=== PATIENT | male | born 1940 | race Caucasian/White ===

== ENCOUNTER → 2017-01-12 | Outpatient (CLI) | payer OTHER ==
[2016-04-01 15:00] VITALS: BP 135/76
[~2017-01-12] MED LIST: ACET500T68 PO; AMLO5TAB2 PO; CHOL100013 PO; CIPR500T94 PO; CRESTOR20 MG PO; CYAN10005 PO; CYCL10TA2 PO; ENOX100D3 SQ; ERGO500027 PO; FOLI1TAB16 PO; FURO40TA4 PO; GABA-585 PO; GABA-586 PO; GEMF600T3 PO; LAMO200T3 PO; LAMO300T2 PO; LIDO700A4 TP; LISI40TA PO; METO50TA2 PO; NITR0.4T SL; OXYC5CAP PO; PARO30TA3 PO; PRIM50TA PO; RIVA20TA2 PO; SERT100T8 PO; TRAZ150T49 PO; TRAZ50TA15 PO; TROL90CR TP; WARF5TAB7 PO; WARF7.5T6 PO
--- NOTE | 2017-01-13 03:07 | PAIN ---
DATE OF SERVICE: 01/12/2017 DIAGNOSES: Lumbar radiculopathy with lumbar degenerative disk disease, lumbar spinal stenosis and spondylosis. HISTORY OF PRESENT ILLNESS: The patient is a 76-year-old male who returns for followup, last seen in 2015 for initial evaluation. The patient changed his care to the [facility] in [place] and has been having some pain management there; however, they are undergoing some remodeling by his report, he is unable to return and he has been referred back here. He reports significant pain across the low back into the bilateral posterior extremities, posterolateral aspect as well as the lateral anterior thighs, posterior thighs, posterior calves into the feet on occasion, but not every day. The patient reports the main pain is across the low back bilaterally, somewhat worse on the right than the left, rated at 8 on a scale of 10 at its worse, it is a sharp, constant, unbearable, at times worse with walking and standing, worse with extension and flexion, it has been waking him from sleep at night occasionally, but most nights he sleeps well. The patient reports feels better with sitting down, better with lying down as well. The patient had some facet injections at the [facility] last year, which did help significantly about 90% by his report. He did not return. The patient reports otherwise no new motor or sensory deficits, no new bowel or bladder incontinence or other complaints. Just has still significant pain. PAST MEDICAL HISTORY: Significant for hearing loss, type 2 diabetes, metastatic melanoma, COPD, cigarette smoking, hypertension, irregular heart rhythm, myocardial infarction, arthritis, depression, tremors and post-traumatic stress disorder. PREVIOUS SURGERY: Include AAA repair in 2007, melanoma excision and cardiac stent in 2003. CURRENT MEDICATIONS: Include Xarelto, Crestor, trazodone, Neurontin, primidone, paroxetine, metoprolol, gemfibrozil, Lasix, folic acid, vitamins D and B12 and amlodipine. ALLERGIES: THE PATIENT IS ALLERGIC TO PENICILLIN. FAMILY HISTORY: Significant for multiple types of various cancers. SOCIAL HISTORY: The patient does not drink, smokes 5-6 cigarettes a day and has for 40 years, lives with his spouse, retired and lives locally in [place], [place]. REVIEW OF SYSTEMS: The patient's review of systems is positive for those items mentioned in history of present illness. It is completed ____, well documented on the patient's chart. PHYSICAL EXAMINATION: VITAL SIGNS: Today, blood pressure is 130/65, pulse 58, respirations 18, temperature 98.1 degrees Fahrenheit. Height is 5 feet 8 inches, weight 227 pounds. GENERAL: The patient is awake, alert, oriented, appropriate, very pleasant demeanor, he is accompanied by his spouse. HEENT: Shows normocephalic, atraumatic. Extraocular movements are intact and symmetrical. Oral cavity shows mucous membranes moist and pink. The patient has some scarring in the anterior forehead from previous melanoma excision. NECK: Shows anterior throat supple without palpable lymphadenopathy noted. Neck shows full rotational motion of the cervical spine. CHEST: Shows breath sounds clear to auscultation bilaterally. Normal on inspection. HEART: Shows S1 and S2 clear. No murmurs auscultated. ABDOMEN: Obese, soft, nontender, nondistended. No palpable organomegaly is noted. No rebound or guarding with palpation. BACK: Shows grossly midline spine. Some moderate exaggeration of thoracic kyphosis, some mild lumbar flattening of lumbar lordotic curvature. No previous bruises, lesions, rashes or scars demonstrated. Lumbar paraspinous muscle shows some ____ tender with palpation, but is symmetrical with inspection. No radiation of pain. Also, some mild tenderness over the bilateral superior sacroiliac regions more on the right than the left. The patient shows good rotation and motion of the lumbar spine, but has some significant tenderness with extension, but not with forward flexion. The patient's lower extremities showed deep tendon reflexes 1+ in the patellar and tendo calcaneus tendons. Motor exam is 4 on a scale of 5, but equal with dorsiflexion, extension, quadriceps and hamstring flexion and is symmetrical. Peripheral pulses are 1+ posterior tibial and dorsalis pedis pulses. No peripheral edema is noted. No clubbing, no cyanosis. PLAN: Options were discussed with the patient. We will preauthorize the patient for bilateral lumbar facet joint injections at L4-L5 and L5-S1 levels as he has done very well with these in the past. We also discussed possible epidural steroid injection in the future, but with his recent success with the facet injections, we will start with these, if significantly improved, may move on to radiofrequency ablation in the future, we discussed this as well and he is interested in anything that will decrease his pain, also clearance with his primary care physician to hold his Xarelto for 3 days prior to procedure. Clearance is given ____ and we will proceed with the aforementioned lumbar facet injections. JUSTUS EDDY MD DR: EMMA/jan JOB#: [id number] / [id number]
== END | disposition home or self-care (01) ==
LOC: PNCL 08:27
PROVIDERS: ATTEND Anesthesiology
DX: M51.16 Intervertebral disc disorders with radiculopathy, lumbar region (principal); M48.06 Spinal stenosis, lumbar region; M43.06 Spondylolysis, lumbar region
CPT/HCPCS: 99212

== ENCOUNTER → 2017-01-26 | Outpatient (CLI) | payer OTHER ==
[2016-04-01 15:00] VITALS: BP 135/76
[~2017-01-26] MED LIST changes: +BUPIVACAINE MPF 0.25% 10 ML VIAL. ONE; +IOHEXOL 180 MG/ML 10 ML VIAL. ONE; +methylPREDNISolone ACETATE 40 MG/ML VIAL. ONE; +methylPREDNISolone ACETATE 80 MG/ML VIAL. ONE
--- NOTE | 2017-01-27 03:02 | PAIN ---
DATE OF SERVICE: 01/26/2017 PROGRESS NOTE FOR PAIN CLINIC DIAGNOSES: Lumbar radiculopathy with lumbar degenerative disk disease, lumbar spinal stenosis and spondylosis. HISTORY OF PRESENT ILLNESS: The patient is a 76-year-old male who returns for followup after clearance to hold the Xarelto for 3 days. He has been offered this now for about 3-1/2 days by his report and his 's report. The patient reports there is still significant pain across the low back, slightly more worse on the right than the left, but present bilaterally and it was worse with extension, bending, flexing, rated as an 8 on a scale of 10 at its worst, averages an 8 and is currently a 6 on a scale of 10. The patient reports it is sharp, shooting, stabbing, on and off in intensity, but always present. The patient reports it awakens him from sleep occasionally. He feels better usually with lying down or sitting, but riding in a car for a long period of time can exacerbate the pain as well. The patient reports no new motor or sensory deficits, no new bowel or bladder incontinence or other complaints. PHYSICAL EXAMINATION: VITAL SIGNS: Today, the patient's blood pressure is ____, pulse is ____, respirations are 18, temperature is 97.9 degrees Fahrenheit, weight is 228 pounds. GENERAL: The patient is awake, alert, oriented, appropriate, very pleasant demeanor. HEENT: Head shows normocephalic, atraumatic. Extraocular movements are intact and symmetrical. Oral cavity shows mucous membranes moist and pink. Dentition is intact. NECK: Shows anterior throat supple without palpable lymphadenopathy noted. Swallow reflex is symmetrical. CHEST: Shows normal on inspection. Breath sounds clear to auscultation bilaterally. HEART: Shows S1 and S2 clear. ABDOMEN: Soft, nontender, nondistended. No palpable organomegaly is noted. No rebound or guarding demonstrated. BACK: Shows spine grossly in the midline. Slight exaggeration of thoracic kyphosis and mild flattening of lumbar lordotic curvature. Lumbar paraspinous musculature shows some diffuse tenderness with palpation bilaterally, but only diffusely, more on the right than the left in the low lumbar distribution with no tenderness over the sacrum or sacroiliac regions. The patient shows good rotational motion with tenderness bilaterally with greater than 10 degrees, right and left lateral rotation, but again more severe on the right side by report with rotation and with extension. EXTREMITIES: Lower extremities showed deep tendon reflexes 1+ in the patellar and tendo calcaneus tendons. Motor exam is strong with approximately 4 on a scale of 5 with dorsiflexion and extension, but equal and symmetrical. Options were discussed with the patient and the patient's old chart was reviewed as his current medication regimen was updated as well as his review of systems updated today. We will proceed with bilateral L4-L5 and L5-S1 facet joint injections with fluoroscopic guidance. Risks were again discussed including, but not limited to bleeding, infection, possibility of epidural hematoma and subsequent neurologic compromise, dural punctures, headaches, spinal cord and/or nerve damage, side effects of steroid medications, poor results regarding pain control. The patient understands and wishes to proceed. The patient will return to clinic in approximately 3 weeks for followup, was counseled on return appointment, activity level and side effects to be aware of. The patient will start on Xarelto again later today and we will follow up as scheduled. DIAGNOSES: Lumbar spondylosis and lumbosacral spondylosis. PROCEDURES: Bilateral L4-L5 and L5-S1 facet joint injections with C-arm fluoroscopic guidance under sterile prep and drape using local anesthetic. MEDICATIONS INJECTED: A total of 120 mg of Depo-Medrol plus a total of 4 mL of 0.25% bupivacaine and a total of 2 mL of Isovue contrast. CONDITION AT DISCHARGE: Stable. The patient tolerated procedure well, had no complications. JUSTUS EDDY MD DR: EMMA/jan JOB#: [id number] / [id number]
== END | disposition home or self-care (01) ==
LOC: PNCL 09:41
PROVIDERS: ATTEND Anesthesiology
DX: M51.16 Intervertebral disc disorders with radiculopathy, lumbar region (principal); M48.06 Spinal stenosis, lumbar region; M47.896 Other spondylosis, lumbar region
CPT/HCPCS: 99212; J1030; J1040; J3490

== ENCOUNTER → 2017-02-15 | Outpatient (CLI) | payer OTHER ==
[2016-04-01 15:00] VITALS: BP 135/76
[~2017-02-15] MED LIST changes: -BUPIVACAINE MPF 0.25% 10 ML VIAL. ONE; -IOHEXOL 180 MG/ML 10 ML VIAL. ONE; -methylPREDNISolone ACETATE 40 MG/ML VIAL. ONE; -methylPREDNISolone ACETATE 80 MG/ML VIAL. ONE
== END | disposition home or self-care (01) ==
LOC: PNCL 10:33
PROVIDERS: ATTEND Anesthesiology
DX: M50.30 Other cervical disc degeneration, unspecified cervical region (principal); M47.897 Other spondylosis, lumbosacral region; M47.892 Other spondylosis, cervical region; R53.1 Weakness
CPT/HCPCS: G0463

== ENCOUNTER → 2017-05-18 | Outpatient (CLI) | payer OTHER ==
[2016-04-01 15:00] VITALS: BP 135/76
--- NOTE | 2017-05-18 15:07 | PAIN ---
DATE OF SERVICE: 05/18/2017 DIAGNOSES: Lumbar radiculopathy with lumbar spinal stenosis, degenerative disk disease and lumbar and lumbosacral spondylosis. HISTORY OF PRESENT ILLNESS: The patient is a 76-year-old male who returns for followup status post bilateral lumbar facet injections on 01/26/2017. The patient did very well with about 90% plus improvement. The patient had been doing very well. We saw him back in 02/2013. He was doing so well that we hold off on any further treatment at that time. The patient reports over the past few months, the pain is beginning to return, but only very gradually and more noticeable in the last 2 weeks or so. The patient reports that pain across the low back, essentially back at baseline, across the low back bilaterally with tenderness with walking, standing, riding lawnmower and prolonged sitting, becoming more of a stabbing pain that can become unbearable. The patient reports a 9 on a scale of 10 at its worse. It averaged about 8 over the past few weeks and as low as about 4, and it is 5 today. The patient reports no new motor or sensory deficits, but still significant pain in the low back itself bilaterally, right essentially equal to left. The patient reports no further radiation to the lower extremities at this time. PHYSICAL EXAMINATION: VITAL SIGNS: Today, the patient's blood pressure is 137/82, pulse 62, respirations 18, temperature 97.7 degrees Fahrenheit, height is 5 feet 8 inches, weight is 225 pounds. GENERAL: The patient is awake, alert, oriented, appropriate, very pleasant demeanor. The patient is accompanied by his spouse. HEENT: Shows normocephalic, atraumatic. Extraocular movements are intact and symmetrical. Oral cavity: Mucous membranes moist and pink. Dentition is intact. NECK: Shows anterior throat supple without palpable lymphadenopathy noted. Swallow reflex is symmetrical. CHEST: Shows normal on inspection. Breath sounds are clear to auscultation bilaterally. HEART: Shows S1 and S2 clear. No murmurs auscultated. ABDOMEN: Soft, nontender, nondistended. No palpable organomegaly is noted. No rebound or guarding demonstrated. BACK: Shows spine grossly in midline with a slight exaggeration of thoracic kyphosis and mild flattening of lumbar lordotic curvature. Lumbar paraspinous musculature shows symmetrical on inspection with palpation. It is diffusely tender bilaterally, but only diffusely without radiation and is essentially symmetrical, no asymmetries demonstrated, no trigger points or radiation. No tenderness over the sacrum or sacroiliac regions. EXTREMITIES: Lower extremities showed deep tendon reflexes at 1+ in the patellar and tendo calcaneus tendons. Motor exam is approximately 4 on a scale of 5, but equal and symmetrical with dorsiflexion, extension, quadriceps and hamstring flexion. Peripheral pulses are 1+ posterior tibial. No peripheral edema is noted bilaterally. Options were discussed with the patient and the patient's spouse. We will have the patient hold his Xarelto as he was cleared to do this with his primary care physician for the next 3 days. We will have him return after that and plan on repeat lumbar facet joint injections, bilateral L4-L5 and L5-S1 as he did very well with these in the past. The patient understands and agrees. He was also given Medrol Dosepak prescription today to take over the next 3 days in hopes of decreasing the pain to some extent. The patient was cautioned as to side effects with the Medrol Dosepak medication as well and will follow up in 3 days as scheduled with holding Xarelto in the meantime. JUSTUS EDDY MD DR: EMMA/jan JOB#: [id number] / [id number]
== END | disposition home or self-care (01) ==
LOC: PNCL 10:12
PROVIDERS: ATTEND Anesthesiology
DX: M51.16 Intervertebral disc disorders with radiculopathy, lumbar region (principal); M48.061 Spinal stenosis, lumbar region without neurogenic claudication; M47.27 Other spondylosis with radiculopathy, lumbosacral region
CPT/HCPCS: 99212

== ENCOUNTER → 2017-05-21 | Outpatient (CLI) | payer OTHER ==
[2016-04-01 15:00] VITALS: BP 135/76
[~2017-05-21] MED LIST changes: +BUPIVACAINE MPF 0.25% 10 ML VIAL. ONE; +IOHEXOL 180 MG/ML 10 ML VIAL. ONE; +methylPREDNISolone ACETATE 40 MG/ML VIAL. ONE; +methylPREDNISolone ACETATE 80 MG/ML VIAL. ONE
--- NOTE | 2017-05-21 14:02 | PAIN ---
DATE OF SERVICE: 05/21/2017 DIAGNOSES: Lumbar radiculopathy with lumbar spinal stenosis, degenerative disk disease and lumbosacral spondylosis. HISTORY OF PRESENT ILLNESS: The patient is a 76-year-old male who returns for followup status post evaluation on 05/18. The patient was still on his Xarelto at that time, he has not held that with permission from his primary physician for the past 3 days. He returns today with still significant pain in the low back bilaterally, returning significantly after the injections he had in January, which did very well with about 90% improvement after facet joint injections. The patient reports the pain is now stabbing, unbearable, dull, aching and shooting in the low back. The patient reports it is 8 on a scale of 10 at its worst, as average about 8, is a 5 at least and 5 this morning. The patient reports no new motor or sensory deficits, no new bowel or bladder incontinence. The patient reports it is still causing some pain with walking, standing. We did try Medrol Dosepak over the weekend. He said it was somewhat better, but he felt anxious while taking it and discontinued it yesterday. PHYSICAL EXAMINATION: VITAL SIGNS: The patient's blood pressure 135/92, pulse 63, respirations 18, temperature 97.8 degrees Fahrenheit, height is 5 feet 8 inches, weight is 225 pounds. GENERAL: The patient is awake, alert, oriented, appropriate, very pleasant demeanor. HEENT: Head shows normocephalic, atraumatic. Extraocular movements are intact, symmetrical. Oral cavity, mucous membranes are moist and pink. Dentition is intact. NECK: Shows anterior throat supple without palpable lymphadenopathy noted. Swallow reflex is symmetrical. CHEST: Shows normal on inspection. Breath sounds are clear to auscultation bilaterally. HEART: Shows S1 and S2 clear. ABDOMEN: Soft, obese, nontender, nondistended. No palpable organomegaly. BACK: Shows spine grossly midline. Lumbar paraspinous muscle shows some moderate tenderness with palpation, but only diffusely bilaterally without radiation. The patient has good rotational motion with some tenderness with extension, but not with forward flexion. EXTREMITIES: Lower extremities show deep tendon reflexes 1+ in the patellar and tendo calcaneus tendons. Motor exam is approximately 4 on a scale of 5, but equal and symmetrical with motor function bilaterally. Peripheral pulses are 1+ posterior tibia. No peripheral edema is noted in lower extremities. Options were discussed with the patient and the patient's old chart was reviewed as is current medication regimen updated. Current review of systems updated today as well. We will proceed with bilateral L4-L5 and L5-S1 facet joint injections with fluoroscopic guidance. Risks were again discussed including, but not limited to bleeding, infection, possibility of intravascular injection sequelae, spread of local anesthetic and numbness, side effects of steroid medication and poor results regarding pain control. The patient understands and wishes to proceed. The patient will return to clinic in approximately 2 weeks for followup. She was counseled as to return appointment, activity level and side effects to be aware of. DIAGNOSES: Lumbar spondylosis and lumbosacral spondylosis. PROCEDURES: Bilateral L4-L5 and L5-S1 facet joint injections with C-arm fluoroscopic guidance under sterile prep and drape using local anesthetic. MEDICATIONS INJECTED: Total of 120 mg Depo-Medrol, plus total of 4 mL of 0.25% bupivacaine and a total of 2 mL of Isovue for contrast. CONDITION AT DISCHARGE: Stable. The patient tolerated procedure well, had no complications. JUSTUS EDDY MD DR: EMMA/jan JOB#: [id number] / [id number]
== END | disposition home or self-care (01) ==
LOC: PNCL 11:09
PROVIDERS: ATTEND Anesthesiology
DX: M51.16 Intervertebral disc disorders with radiculopathy, lumbar region (principal); M47.26 Other spondylosis with radiculopathy, lumbar region; M48.061 Spinal stenosis, lumbar region without neurogenic claudication; I10 Essential (primary) hypertension; J44.9 Chronic obstructive pulmonary disease, unspecified; Z87.01 Personal history of pneumonia (recurrent); Z86.73 Personal history of transient ischemic attack (TIA), and cerebral infarction without residual deficits; Z88.0 Allergy status to penicillin; Z88.8 Allergy status to other drugs, medicaments and biological substances
CPT/HCPCS: 64493; 64494; J1030; J1040; J3490

== ENCOUNTER → 2017-09-21 | Outpatient (CLI) | payer OTHER ==
[~2017-09-21] MED LIST changes: -ACET500T68 PO; -AMLO5TAB2 PO; +BUPIVACAINE MPF 0.25% 10 ML VIAL.; -BUPIVACAINE MPF 0.25% 10 ML VIAL. ONE; -CHOL100013 PO; -CIPR500T94 PO; -CRESTOR20 MG PO; -CYAN10005 PO; -CYCL10TA2 PO; -ENOX100D3 SQ; -ERGO500027 PO; -FOLI1TAB16 PO; -FURO40TA4 PO; -GABA-585 PO; -GABA-586 PO; -GEMF600T3 PO; +IOHEXOL 180 MG/ML 10 ML VIAL.; -IOHEXOL 180 MG/ML 10 ML VIAL. ONE; -LAMO200T3 PO; -LAMO300T2 PO; -LIDO700A4 TP; -LISI40TA PO; -METO50TA2 PO; -NITR0.4T SL; -OXYC5CAP PO; -PARO30TA3 PO; -PRIM50TA PO; -RIVA20TA2 PO; -SERT100T8 PO; -TRAZ150T49 PO; -TRAZ50TA15 PO; -TROL90CR TP; -WARF5TAB7 PO; -WARF7.5T6 PO; +methylPREDNISolone ACETATE 40 MG/ML VIAL.; -methylPREDNISolone ACETATE 40 MG/ML VIAL. ONE; +methylPREDNISolone ACETATE 80 MG/ML VIAL.; -methylPREDNISolone ACETATE 80 MG/ML VIAL. ONE
== END | disposition home or self-care (01) ==
LOC: PNCL 09:10
DX: M47.816 Spondylosis without myelopathy or radiculopathy, lumbar region (principal); M51.36 Other intervertebral disc degeneration, lumbar region; M48.061 Spinal stenosis, lumbar region without neurogenic claudication; E11.9 Type 2 diabetes mellitus without complications; I25.2 Old myocardial infarction; I10 Essential (primary) hypertension; J44.9 Chronic obstructive pulmonary disease, unspecified; Z87.01 Personal history of pneumonia (recurrent); Z72.0 Tobacco use; Z88.0 Allergy status to penicillin; Z86.73 Personal history of transient ischemic attack (TIA), and cerebral infarction without residual deficits; Z88.8 Allergy status to other drugs, medicaments and biological substances; Z88.7 Allergy status to serum and vaccine; Z85.820 Personal history of malignant melanoma of skin; Z98.890 Other specified postprocedural states
CPT/HCPCS: 64493; 64494; 64636; J1030; J1040; J3490; Q9965

== ENCOUNTER 2017-11-19 09:35 | Outpatient (CLI) | payer OTHER ==
[2017-11-21] MEDS ORDERED: IOHEXOL 180 MG/ML 10 ML VIAL. (08:47)
[2017-11-21] MEDS ORDERED: methylPREDNISolone ACETATE 40 MG/ML VIAL. (08:47)
[2017-11-21] MEDS ORDERED: methylPREDNISolone ACETATE 80 MG/ML VIAL. (08:47)
[2017-11-21] MEDS ORDERED: BUPIVACAINE MPF 0.25% 10 ML VIAL. (08:49)
== END 2017-11-21 ==
LOC: PNCL 09:35
DX: M51.16 Intervertebral disc disorders with radiculopathy, lumbar region (principal); M47.817 Spondylosis without myelopathy or radiculopathy, lumbosacral region; M48.061 Spinal stenosis, lumbar region without neurogenic claudication; M54.5 Low back pain
CPT/HCPCS: 64493; 64494; J1030; J1040; J3490; Q9965

== ENCOUNTER → 2018-06-04 | Outpatient (CLI) | payer OTHER ==
[2016-04-01 15:00] VITALS: BP 135/76
[~2018-06-04] MED LIST changes: +ACET500T68 PO; +AMLO5TAB7 PO; -BUPIVACAINE MPF 0.25% 10 ML VIAL.; +BUPIVACAINE MPF 0.25% 10 ML VIAL. ONE; +CHOL100013 PO; +CIPR500T94 PO; +CRESTOR20 MG PO; +CYAN10005 PO; +CYCL10TA2 PO; +ENOX100D3 SQ; +ERGO500027 PO; +FOLI1TAB16 PO; +FURO40TA4 PO; +GABA-585 PO; +GABA-586 PO; +GEMF600T4 PO; -IOHEXOL 180 MG/ML 10 ML VIAL.; +IOHEXOL 180 MG/ML 10 ML VIAL. ONE; +LAMO200T3 PO; +LAMO300T2 PO; +LIDO700A4 TP; +LIDOCAINE 1% PF 2 ML VIAL. ONE; +LISI-130 PO; +METO50TA6 PO; +NITR0.4T SL; +OXYC5CAP PO; +PARO30TA3 PO; +PRIM50TA PO; +RIVA20TA2 PO; +SERT100T8 PO; +TRAZ-85 PO; +TRAZ150T49 PO; +TROL90CR TP; +WARF-31 PO; +WARF7.5T45 PO; -methylPREDNISolone ACETATE 40 MG/ML VIAL.; +methylPREDNISolone ACETATE 40 MG/ML VIAL. ONE; -methylPREDNISolone ACETATE 80 MG/ML VIAL.; +methylPREDNISolone ACETATE 80 MG/ML VIAL. ONE
--- NOTE | 2018-06-04 22:56 | PAIN ---
DATE OF SERVICE: 06/04/2018 PROGRESS NOTE FOR PAIN CLINIC DIAGNOSES: Lumbar radiculopathy with lumbar spinal stenosis, lumbar degenerative disk disease and lumbar spondylosis. HISTORY OF PRESENT ILLNESS: The patient is a 77-year-old male who returns for followup status post previous lumbar facet joint injections, last seen 11/21/2017. The patient did very well after the injections, with approximately 75% improvement, which lasted until about 2 months ago. The patient reports he did very well. The pain has been returning now in the low back itself bilaterally, without any specific radiation to the lower extremities, but significantly tender across the low back. The patient reports it is worse with walking, worse in the morning; legs are shaky as well when the pain is at its worst in his back. The patient reports it is stabbing, constant, aching and tight. He rates it a 7 on a scale of 10 at its worst, 7 on average, 6 at its least and it is a 7 today. The patient reports no new motor or sensory deficits. No new bowel or bladder incontinence or other complaints. He has recently increased his distance walking, increased his household activities, traveling with his spouse, but now the pain has become worse over the past 2 months and these have been limited. The patient reports no new motor or sensory deficits. It does not awaken him from sleep at night, much better with sitting or lying down and much worse with standing and attempting to walk. PHYSICAL EXAMINATION: VITAL SIGNS: The patient's blood pressure is 151/86, pulse 56, respirations 18 and temperature is 98.0 degrees Fahrenheit. Height is 5 feet 8 inches, weight is 223 pounds. GENERAL: The patient is awake, alert, oriented, appropriate, very pleasant demeanor. HEENT EXAMINATION: Shows normocephalic, atraumatic. Extraocular movements are intact and symmetrical. Oral cavity, mucous membranes are moist and pink. Dentition is intact. NECK: Shows anterior throat supple, without palpable lymphadenopathy noted. Swallow reflex is symmetrical. CHEST: Shows normal with inspection. Breath sounds are clear to auscultation bilaterally. HEART: Shows S1, S2 clear. No murmurs auscultated. ABDOMEN: Soft, nontender and nondistended. No palpable organomegaly is noted. No rebound or guarding demonstrated. BACK: Shows spine grossly in the midline. Slightly exaggerated thoracic kyphosis and minor flattening of the lumbar lordotic curvature. Lumbar paraspinous muscle shows symmetrical on inspection. On palpation, it shows some moderate tenderness in the middle and lower distribution of the paraspinous muscles diffusely bilaterally, but without significant radiation. The patient has good rotational motion with some moderate tenderness, worse on the right than the left, with rotation greater than 10 degrees, with significant tenderness with extension of the spine greater than 10 degrees with axial loading in the low back, very firm, very significantly tender, again reported worse on the right side than the left. Forward flexion decreases this pain to a moderate extent. EXTREMITIES: Lower extremities show deep tendon reflexes at 1+ in the patellar and tendo calcaneus tendons. Motor exam is approximately 4 on a scale of 5 and equal and symmetric with dorsiflexion, extension, quadriceps and hamstring flexion and symmetrical. Peripheral pulses are 1+ posterior tibial bilaterally. Options were discussed with the patient. The patient's old chart was reviewed and his current medication regimen updated. Current review of systems updated today as well. We will proceed with bilateral L4-L5 and L5-S1 facet joint injections. The patient has been off of his Xarelto for 3 days. We verified this with his spouse and we will proceed. Risks were again discussed including, but not limited to bleeding, infection, possibility of epidural hematoma, subsequent neurological compromise, dural puncture, headaches, spinal cord and/or nerve damage, side effects to steroid medication and poor results regarding pain control. The patient understands and wished to proceed. The patient will return to the clinic in approximately 2 weeks for followup. He was counseled on his return appointment, activity level and side effects to be aware of. DIAGNOSIS: Lumbar and lumbosacral spondylosis with lumbar degenerative disk disease. PROCEDURE: Lumbar bilateral facet joint injections, L4-L5 and L5-S1, under sterile prep and drape using local anesthetic. MEDICATIONS INJECTED: A total of 4 mL of 0.25% bupivacaine after negative aspiration, a total of 120 mg Depo-Medrol and total of 2 mL of Isovue for contrast. CONDITION AT DISCHARGE: Stable. The patient tolerated the procedure well, had no complications. JUSTUS EDDY MD DR: EMMA/jan JOB#: [id number] / [id number]
== END | disposition home or self-care (01) ==
LOC: PNCL 11:26
PROVIDERS: ATTEND Anesthesiology
DX: M51.16 Intervertebral disc disorders with radiculopathy, lumbar region (principal); M48.061 Spinal stenosis, lumbar region without neurogenic claudication; M47.816 Spondylosis without myelopathy or radiculopathy, lumbar region; Z88.0 Allergy status to penicillin; Z88.7 Allergy status to serum and vaccine; Z88.8 Allergy status to other drugs, medicaments and biological substances
CPT/HCPCS: 64493; 64494; J1030; J1040; J3490; Q9965